=== PATIENT | male | born 1995 | race Caucasian/White ===

== ENCOUNTER 2024-03-30 10:30 | Emergency (ER) | payer MEDICAID ==
[~2024-03-30] VITALS: Ht 188 cm; Wt 100.0 kg
[2024-03-30 12:17] VITALS: TEMP 98.4
[2024-03-30] MEDS ORDERED: CLOT15CR29 TP (13:28)
[2024-03-30] MEDS ORDERED: CEPH-558 PO (13:29)
[2024-03-30] MEDS ORDERED: SULF-261 PO (13:29)
[2024-03-30 13:59] VITALS: BP 126/62; PULSE 62; RESP 18
== END 2024-03-30 15:41 | disposition home or self-care (01) ==
LOC: EMS 10:32
DX: R21 Rash and other nonspecific skin eruption (principal); J45.909 Unspecified asthma, uncomplicated; Z88.1 Allergy status to other antibiotic agents
CPT/HCPCS: 99283; Z7502

== ENCOUNTER 2025-04-18 11:13 | Emergency (ER) | payer MEDICAID ==
[~2025-04-18] VITALS: Ht 188 cm; Wt 86.4 kg
[~2025-04-18 11:13] MED LIST: CEPH-558 PO; CLOT15CR29 TP; SULF-261 PO
[2025-04-18 11:16] VITALS: TEMP 98.4
[2025-04-18] MEDS: IBUPROFEN 600 MG TABLET PO ONE (12:16)
[2025-04-18] MEDS: CEPHALEXIN MONOHYDRATE 500 MG CAPSULE PO ONE (12:16)
[2025-04-18] MEDS ORDERED: CEPH-558 PO (13:23)
[2025-04-18 13:49] VITALS: BP 132/77; PULSE 96; RESP 18; O2SAT 98
== END 2025-04-18 13:51 | disposition home or self-care (01) ==
LOC: EMS 12:03
DX: L73.9 Follicular disorder, unspecified (principal); R51.9 Headache, unspecified; J45.909 Unspecified asthma, uncomplicated; Z88.1 Allergy status to other antibiotic agents; Z79.899 Other long term (current) drug therapy
CPT/HCPCS: 99283

== ENCOUNTER 2025-09-30 12:06 | Emergency (ER) | payer SELFPAY ==
[~2025-09-30] VITALS: Ht 188 cm; Wt 86.4 kg
[~2025-09-30 12:06] MED LIST changes: -SULF-261 PO; +SULF1TAB94 PO
[2025-09-30 12:10] VITALS: TEMP 98.2
[2025-09-30] MEDS: BACITRACIN 0.9 GM PACKET OINTMENT TP ONE (12:42)
[2025-09-30] MEDS: PERTUSS(ACELL),DIPH,TET/PF 0.5 ML SYRINGE [ADULT] IM. ONE (12:46)
[2025-09-30 12:57] VITALS: BP 115/67; PULSE 73; RESP 16; O2SAT 100
== END 2025-09-30 13:57 | disposition home or self-care (01) ==
LOC: EMS 12:08
DX: S60.311A Abrasion of right thumb, initial encounter (principal); J45.909 Unspecified asthma, uncomplicated; Z79.899 Other long term (current) drug therapy; Z88.1 Allergy status to other antibiotic agents; W45.0XXA Nail entering through skin, initial encounter; Y93.89 Activity, other specified; Y92.89 Other specified places as the place of occurrence of the external cause; Y99.8 Other external cause status
CPT/HCPCS: 90471; 90715; 99283